=== PATIENT | male | born 1955 | race Caucasian/White ===

== ENCOUNTER 2021-08-14 07:50 | Emergency (ER) | payer BC, OTHER ==
[~2021-08-14] VITALS: Ht 175.3 cm; Wt 117.9 kg
[2021-08-14 07:59] VITALS: BP_SYST 165
[2021-08-14] MEDS ORDERED: ALPR1TAB2 PO (08:17)
[2021-08-14] MEDS ORDERED: [UNRECOGNIZED DRUG - OTHER] PO (08:17)
[2021-08-14] MEDS ORDERED: LISI20TA30 PO (08:17)
[2021-08-14] MEDS ORDERED: ECON70FO TP (08:17)
[2021-08-14] MEDS ORDERED: IBUP-1970 PO (08:17)
[2021-08-14] MEDS ORDERED: CARI350T27 PO (08:17)
[2021-08-14] MEDS ORDERED: GLIP5TAB26 PO (08:17)
[2021-08-14] MEDS ORDERED: METF-518 PO (08:17)
[2021-08-14 08:26] LABS: BASOPHILS % (AUTO) 0.6 % (0.0-2.0); EOSINOPHILS # (AUTO) 0.1 K/uL (0.0-0.4); EOSINOPHILS % (AUTO) 1.6 % (0.0-4.0); HEMATOCRIT 51.4 % (36-54); HEMOGLOBIN 17.1 g/dL (14.0-18.0); LYMPHOCYTES # (AUTO) 1.8 K/uL (1.0-5.5); LYMPHOCYTES % (AUTO) 27.5 % (20.5-51.5); MEAN CORPUSCULAR HEMOGLOBIN 28 pg (27-31); MEAN CORPUSCULAR HGB CONC 33 % (32-36); MEAN CORPUSCULAR VOLUME 84 fL (79.0-98.0); MONOCYTES # (AUTO) 0.5 K/uL (0.0-1.0); MONOCYTES % (AUTO) 8.2 % (1.7-9.3); NEUTROPHILS # (AUTO) 4.1 K/uL (1.8-7.7); NEUTROPHILS % (AUTO) 62.1 % (40.0-70.0); PLATELET COUNT (AUTO) 218 K/uL (130-430); RED BLOOD CELL COUNT(AUTO) 6.11 MIL/uL (4.2-6.2); RED CELL DISTRIBUTION WIDTH 14.9 % (9.0-15.0); WHITE BLOOD COUNT (AUTO) 6.7 K/uL (4.8-10.8)
[2021-08-14 08:36] LABS: CALCIUM 8.8 mg/dL (8.4-11.0); CREATININE 0.64 mg/dL (0.55-1.30); POTASSIUM 4.2 mmol/L (3.5-5.1)
[2021-08-14 08:42] LABS: ALBUMIN 3.9 g/dL (3.4-4.8); TOTAL BILIRUBIN 0.5 mg/dL (0.0-1.0)
[2021-08-14 09:28] LABS: BILIRUBIN,URINE 1+ (NEGATIVE); BLOOD, URINE NEGATIVE (NEGATIVE); CLARITY/URINE CLEAR (CLEAR); COLOR,URINE YELLOW (YELLOW); GLUCOSE,URINE NEGATIVE (NEGATIVE); KETONES,URINE NEGATIVE (NEGATIVE); LEUKOCYTE ESTERASE ,URINE NEGATIVE (NEGATIVE); NITRITE, URINE NEGATIVE (NEGATIVE); PH,URINE 5.5 (5.0-8.0); PROTEIN URINE NEGATIVE (NEGATIVE)
[2021-08-14] MEDS ORDERED: HYDR-3917 PO (09:39)
[2021-08-14 09:47] VITALS: BP_SYST 165
== END 2021-08-14 09:46 | disposition home or self-care (01) ==
LOC: SED 07:50
DX: R10.32 Left lower quadrant pain (principal); E11.9 Type 2 diabetes mellitus without complications; Z79.899 Other long term (current) drug therapy
CPT/HCPCS: 36415; 76376; 80053; 81003; 82962; 83690; 85025; 99284

== ENCOUNTER 2023-08-05 10:46 | Emergency (ER) | payer OTHER, BC ==
[~2023-08-05] VITALS: Ht 177.8 cm; Wt 122.5 kg
[~2023-08-05 10:46] MED LIST: ALPR1TAB2 PO; CARI350T27 PO; ECON70FO TP; GLIP5TAB26 PO; HYDR-3917 PO; IBUP-1970 PO; LISI20TA30 PO; METF-518 PO; [UNRECOGNIZED DRUG - OTHER] PO
[2023-08-05 11:00] VITALS: BP_SYST 110; PULSE 85; RESP 19; TEMP 98; O2SAT 96
[2023-08-05] MEDS: ONDANSETRON 4 MG ODT TAB PO ONE (13:35)
[2023-08-05 13:38] LABS: BILIRUBIN,URINE NEGATIVE (NEGATIVE); BLOOD, URINE NEGATIVE (NEGATIVE); CLARITY/URINE CLEAR (CLEAR); COLOR,URINE YELLOW (YELLOW); GLUCOSE,URINE NEGATIVE (NEGATIVE); KETONES,URINE TRACE (NEGATIVE); LEUKOCYTE ESTERASE ,URINE NEGATIVE (NEGATIVE); NITRITE, URINE NEGATIVE (NEGATIVE); PH,URINE 5.5 (5.0-8.0); PROTEIN URINE NEGATIVE (NEGATIVE)
[2023-08-05 14:34] LABS: BASOPHILS % (AUTO) 0.5 % (0.0-2.0); EOSINOPHILS # (AUTO) 0.1 K/uL (0.0-0.4); EOSINOPHILS % (AUTO) 1.2 % (0.0-4.0); HEMATOCRIT 51.2 % (36-54); HEMOGLOBIN 17.4 g/dL (14.0-18.0); LYMPHOCYTES # (AUTO) 1.5 K/uL (1.0-5.5); LYMPHOCYTES % (AUTO) 21.7 % (20.5-51.5); MEAN CORPUSCULAR HEMOGLOBIN 30 pg (27-31); MEAN CORPUSCULAR HGB CONC 34 % (32-36); MEAN CORPUSCULAR VOLUME 87 fL (79.0-98.0); MONOCYTES # (AUTO) 1.2 K/uL (0.0-1.0); MONOCYTES % (AUTO) 16.8 % (1.7-9.3); NEUTROPHILS # (AUTO) 4.2 K/uL (1.8-7.7); NEUTROPHILS % (AUTO) 59.8 % (40.0-70.0); PLATELET COUNT (AUTO) 203 K/uL (130-430); RED BLOOD CELL COUNT(AUTO) 5.86 MIL/uL (4.2-6.2); RED CELL DISTRIBUTION WIDTH 15.7 % (9.0-15.0)
[2023-08-05 14:45] LABS: CALCIUM 8.9 mg/dL (8.4-11.0); CREATININE 1.19 mg/dL (0.55-1.30); POTASSIUM 4.3 mmol/L (3.5-5.1)
[2023-08-05 14:48] LABS: ALBUMIN 3.6 g/dL (3.4-4.8); BILIRUBIN,DIRECT 0.3 mg/dL (0.0-0.3); TOTAL BILIRUBIN 0.6 mg/dL (0.0-1.0); TOTAL PROTEIN, SERUM 7.4 g/dL (6.4-8.3)
[2023-08-05 15:34] VITALS: BP_SYST 110; PULSE 85; RESP 19; TEMP 98; O2SAT 96
== END 2023-08-05 15:35 | disposition home or self-care (01) ==
LOC: SED 10:46
DX: R53.1 Weakness (principal); E86.0 Dehydration; R35.0 Frequency of micturition; R39.15 Urgency of urination; R11.0 Nausea; E11.9 Type 2 diabetes mellitus without complications; Z79.899 Other long term (current) drug therapy
CPT/HCPCS: 99283; 80076; 80048; 81001; 83690; 83735; 85025; 84484; 36415; 82948; 81003; Q0162